=== PATIENT | male | born 1970 | race Caucasian/White ===

== ENCOUNTER 2023-08-11 16:16 | Outpatient (AMB) | payer OTHER, SELFPAY ==
[2023-08-11 16:27] VITALS: BP 126/78; PULSE 76; TEMP 36.9; O2SAT 98; BMI 28.1
--- NOTE | 2023-08-11 16:27 | MHC.OFFWIV ---
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) Intake Note: pt is here for c/o body aches, congestion 2 days Patient Tobacco Use Status: Current everyday Tobacco user Allergies No Known Allergies Allergy (Verified 08/23/23 10:40) Medication List - Last Reconciled 08/23/23 by Rubén Kendrick MD amitriptyline 10 mg PO BEDTIME aspirin 81 mg PO DAILY atorvastatin 20 mg PO DAILY cholecalciferol (vitamin D3) 25 mcg PO DAILY fluticasone propionate 50 mcg/actuation 1 spray intranasal DAILY ibuprofen 800 mg PO Q6H PRN lisinopril 10 mg PO DAILY metoprolol succinate ER 50 mg PO DAILY Do you need a note to return to daycare/school/sports/work: Yes 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 Reporting symptoms of sinus congestion, sore throat and difficulty swallowing. Low-grade fever. No family member is sick. No recent travel. Patient reports symptoms of malaise and fatigue. PFSH Social History Patient Tobacco Use Status: Current everyday Tobacco user Physical Exam Vital Signs: Last Vital Signs Temp 98.5 F 08/11/23 16:27 Pulse 76 08/11/23 16:27 BP 126/78 08/11/23 16:27 Pulse Ox 98 08/11/23 16:27 BMI result Body Mass Index 28.1 Const General: cooperative and healthy appearing Nutritional Appearance: well nourished Orientation/consciousness: patient oriented x3 Limitations: no limitations HEENT Head: Yes normal to inspection Eyes General: appearance normal, both eyes and all related structures Neck Neck: Yes normal visual inspection Chest Chest palpation & inspection: normal palpation of entire chest wall Resp Effort & Inspection: normal respiratory effort Neuro General: patient oriented x3 Assessment & Plan Assessment & Plan (1) Upper respiratory tract infection: Code(s): J06.9 - Acute upper respiratory infection, unspecified Plan: No antibiotics needed. Will call with results of the viral swab. Orders: Orders SARS-CoV2/FLU/RSV 08/12/23 R43.9 - Unspecified disturbances of smell and taste Coding Level of Care Code Est Pt Level 3 (11177) Diagnoses Upper respiratory tract infection J06.9
== END 2023-08-11 16:45 | disposition home or self-care (01) ==
LOC: HO.HMGWI 16:16
DX: J06.9 Acute upper respiratory infection, unspecified (principal)
CPT/HCPCS: 99213

== ENCOUNTER 2023-08-11 16:39 | Outpatient (REF) | payer OTHER, SELFPAY ==
[2023-08-12 14:02] LABS: Influenza A PCR NEGATIVE (Negative); Influenza B PCR NEGATIVE (Negative); Resp Syncy Virus RNA Qual PCR NEGATIVE (Negative); SARS COV2 PCR INHOUSE POSITIVE (Negative)
== END 2023-08-11 16:40 | disposition home or self-care (01) ==
LOC: HO.LAB 16:39
PROVIDERS: Visit Provider Internal Medicine
DX: R43.9 Unspecified disturbances of smell and taste (principal); Z11.52 Encounter for screening for COVID-19
CPT/HCPCS: 0241U

== ENCOUNTER 2023-11-30 15:18 | Outpatient (AMB) | payer OTHER, SELFPAY ==
[2023-11-30 15:20] VITALS: BP 138/82; PULSE 81; TEMP 37.1; O2SAT 98; BMI 29.4
--- NOTE | 2023-11-30 15:20 | MHC.OFFWIV ---
Intake Vital Signs 11/30/23 15:20 Height 5 ft 9 in Weight 199 lb BMI 29.4 BP 138/82 Blood Pressure Location Rt brachial Position Sitting Pulse 81 Pulse Source Pulse Oximeter Temp 98.8 F Temp Source Oral Pulse Oximetry (%) 98 Oxygen Delivery Method Room Air Intake Visit Reasons: EP chills / no fever / cold sweat / weakness Intake Note: pt is here for c/o chills, cold sweats, weakness, he denies having a fever Patient Tobacco Use Status: Current everyday Tobacco user Allergies No Known Allergies Allergy (Verified 11/30/23 16:17) Medication List - Last Reconciled 11/30/23 by Rubén Kendrick MD amitriptyline 10 mg PO BEDTIME aspirin 81 mg PO DAILY atorvastatin 20 mg PO DAILY cholecalciferol (vitamin D3) 25 mcg PO DAILY fluticasone propionate 50 mcg/actuation 1 spray intranasal DAILY ibuprofen 800 mg PO Q6H PRN lisinopril 10 mg PO DAILY metoprolol succinate ER 50 mg PO DAILY Do you need a note to return to daycare/school/sports/work: No HPI EP chills / no fever / cold sweat / weakness HPI Details 53 yr old male presents to the office for a sick visit. In the past week, patient has had two episodes of chills. He felt the rigors which was followed by weakness and back pain. No symptoms of cough, running nose. No family member is sick. 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 PFSH Social History Patient Tobacco Use Status: Current everyday Tobacco user Physical Exam Vital Signs: Last Vital Signs Temp 98.8 F 11/30/23 15:20 Pulse 81 11/30/23 15:20 BP 138/82 11/30/23 15:20 Pulse Ox 98 11/30/23 15:20 Oxygen Delivery Method Room Air 11/30/23 15:20 BMI result Body Mass Index 29.4 Const General: cooperative and healthy appearing Nutritional Appearance: well nourished Orientation/consciousness: patient oriented x3 Limitations: no limitations HEENT Head: Yes normal to inspection Eyes General: appearance normal, both eyes and all related structures Neck Neck: Yes normal visual inspection Chest Chest palpation & inspection: normal palpation of entire chest wall Resp Effort & Inspection: normal respiratory effort Neuro General: patient oriented x3 Assessment & Plan Assessment & Plan (1) Myalgia: Code(s): M79.10 - Myalgia, unspecified site Plan: Blood work including lyme titres have been ordered. Will call with the results. Orders: Orders Complete Blood Count no Diff Today M79.10 - Myalgia, unspecified site Basic Metabolic Panel Today M79.10 - Myalgia, unspecified site Erythrocyte Sedimentation Rate Today M79.10 - Myalgia, unspecified site Liver Panel Today M79.10 - Myalgia, unspecified site Lyme IgG/IgM w/reflex to WB Today M79.10 - Myalgia, unspecified site Coding Level of Care Code Est Pt Level 3 (85570) Diagnoses Myalgia M79.10
== END 2023-11-30 16:33 | disposition home or self-care (01) ==
PROVIDERS: Visit Provider Internal Medicine
DX: M79.10 Myalgia, unspecified site (principal)
CPT/HCPCS: 99213

== ENCOUNTER 2023-12-01 09:50 | Outpatient (REF) | payer OTHER, SELFPAY ==
[2023-12-01 13:31] LABS: Hematocrit 43.6 % (42.0-52.0); Hemoglobin 13.7 g/dl (14.0-18.0); Mean Corpuscular HGB Conc 31.4 g/dl (31.0-36.0); Mean Corpuscular Hemoglobin 28.1 pg (27.0-33.0); Mean Corpuscular Volume 89.5 fL (80.0-98.0); Mean Platelet Volume 10.4 fL (9.4-12.4); Platelet Count 217 X10*3/uL (160-400); Red Blood Count 4.87 X10*6/uL (4.60-5.80); White Blood Count 6.6 X10*3/uL (4.8-10.8)
[2023-12-01 13:44] LABS: Alanine Aminotransferase 22 U/L (0-40); Albumin Level 4.3 g/dL (3.5-5.0); Alkaline Phosphatase 54 U/L (39-117); Anion Gap 15 (12-20); Aspartate Amino Transferase 15 U/L (5-37); Bilirubin Direct 0.2 mg/dL (0.0-0.5); Bilirubin Total 0.5 mg/dL (0.0-1.0); Blood Urea Nitrogen 18 mg/dL (9-16); Calcium 10.4 mg/dL (8.4-10.2); Carbon Dioxide 27 mmol/L (22-29); Chloride 104 mmol/L (96-108); Estimated Glomerular Filt Rate > 60; Glucose Random 105 mg/dL (60-115); Potassium 4.4 mmol/L (3.3-5.1); Sodium 142 mmol/L (135-145)
[2023-12-01 14:21] LABS: Erythrocyte Sedimentation Rate 21 MM/HR (0-15)
[2023-12-02 17:44] LABS: Lyme Abs Screen <0.90 index
== END 2023-12-01 09:51 | disposition home or self-care (01) ==
LOC: HO.HMGCLDS 09:50
PROVIDERS: Visit Provider Internal Medicine
DX: M79.10 Myalgia, unspecified site (principal)
CPT/HCPCS: 36415; 80048; 80076; 85027; 85652; 86617; 86618

== ENCOUNTER 2024-06-28 10:27 | Outpatient (AMB) | payer OTHER, SELFPAY ==
--- NOTE | 2024-06-28 10:29 | MHC.OFFWIV ---
Intake Vital Signs 06/28/24 10:30 Height 5 ft 9 in Weight 200 lb BMI 29.5 BP 122/78 Blood Pressure Location Lt brachial Position Sitting Pulse 86 Pulse Source Pulse Oximeter Temp 98.4 F Temp Source Oral Pulse Oximetry (%) 98 Oxygen Delivery Method Room Air Intake Visit Reasons: EP- chest cyst Intake Note: Patient here for painful cyst on left side of chest that has grown bigger over the past weekl. Patient Tobacco Use Status: Current everyday Tobacco user Allergies No Known Allergies Allergy (Verified 06/28/24 10:30) Do you need a note to return to daycare/school/sports/work: No HPI HPI Comments History of Present Illness Details History of Present Illness The patient is a 54-year-old male presenting with a recurrent cyst on the chest. He reports that the cyst has been present for over a year. Approximately a year ago, he sought treatment at [facility], where a procedure involving burning of the skin and squeezing was performed. The patient described this method as painful and ineffective, as it did not involve a simple incision and drainage but rather burning the area, which led to a distressing experience. The cyst began to regrow over the summer, becoming larger and painful. It is currently very red but not associated with fever. The patient does not have a microsoft exchange architect and mentioned that his chest is extensively scarred due to previous open heart surgery. He has tattooed the area to cover the scarring, which he finds aesthetically distressing. [facility] Social History Patient Tobacco Use Status: Current everyday Tobacco user Review of Systems Const All systems reviewed & are unremarkable except as noted in HPI and below Physical Exam Vital Signs: Last Vital Signs Temp 98.4 F 06/28/24 10:30 Pulse 86 06/28/24 10:30 BP 122/78 06/28/24 10:30 Pulse Ox 98 06/28/24 10:30 Oxygen Delivery Method Room Air 06/28/24 10:30 BMI result Body Mass Index 29.5 Const General: cooperative, healthy appearing, comfortable, no acute distress and well developed Orientation/consciousness: patient oriented x3 Limitations: no limitations HEENT Head: Yes normal to inspection Eyes General: appearance normal, both eyes and all related structures Neck Neck: Yes normal visual inspection and Yes full ROM Resp Effort & Inspection: normal respiratory effort and able to speak in complete sentences Skin Other: superficial 1.25cm round fluctuant tender area on left side chest; no ecchymosis, no lesions, no lacerations or abrasions noted Neuro General: patient oriented x3 Extrem General: Yes normal to inspection Office Procedures I&D Drain Details: injected 3mL's 2% lidocaine, using scalpel, made a small 0.5cm incision into the center of the abscess with immediate purulent fluid coming out, able to express 4-5mL's - sent culture, some ss fluid and blood. packed with iodoform and taped in place. 57787-Uyvvlsej of Skin Abscess, simple All charges added?: Procedure code (CPT) selection complete Assessment & Plan Assessment & Plan (1) Abscess: Code(s): L02.91 - Cutaneous abscess, unspecified Plan: I&D successful with some residual induration so I sent keflex to his pharmacy to cover the remainder. Patient will return in 2-3 days for wound packing removal and wound assessment. Sent culture. Orders: Orders Routine Culture w Gram Stain Today L02.91 - Cutaneous abscess, unspecified Medications: New cephalexin 500 mg PO Q6H 20 caps 0RF Coding Level of Care Code New Pt Level 4 (28998) Diagnoses Abscess L02.91 CPT Codes I&D Drain - Drain 1: 08885-Belzpvjm of Skin Abscess, simple ([id number])
[2024-06-28 10:30] VITALS: BP 122/78; PULSE 86; TEMP 36.9; O2SAT 98; BMI 29.5
== END 2024-06-28 12:41 | disposition home or self-care (01) ==
PROVIDERS: Visit Provider Physician Assistant
DX: L02.91 Cutaneous abscess, unspecified (principal)

== ENCOUNTER 2024-06-28 10:27 | Outpatient (REF) | payer OTHER, SELFPAY | END 2024-06-28 10:28 | disposition home or self-care (01) | LOC: HO.LAB 10:27 | PROVIDERS: Visit Provider Physician Assistant | DX: L02.91 Cutaneous abscess, unspecified (principal) | CPT/HCPCS: 10060; 87070; 87077; 87186; 87205; 99212 ==

== ENCOUNTER 2024-06-30 14:03 | Outpatient (AMB) | payer OTHER, SELFPAY ==
--- NOTE | 2024-06-30 14:21 | AM.OFFWIN_ITS ---
Intake Vital Signs 06/30/24 15:02 Weight 200 lb BP 128/80 Blood Pressure Location Lt brachial Position Sitting Pulse 78 Pulse Source Pulse Oximeter Pulse Oximetry (%) 98 Oxygen Delivery Method Room Air Intake Visit Reasons: EP Cyst on chest follow up Intake Note: Patient here to f/u on cyst on chest Patient Tobacco Use Status: Current everyday Tobacco user Allergies No Known Allergies Allergy (Verified 06/30/24 15:03) Do you need a note to return to daycare/school/sports/work: No HPI HPI Comments History of Present Illness Details History of Present Illness The patient is a 54-year-old male presenting for wound check on his abscess. The patient reports an ongoing issue with an abscess that had previously been drained and packed with material at this clinic a few days ago. The packing has remained in place but continues to leak significantly. The abscess has been described as swollen and painful. The patient has sought care for this condition, indicating persistent discomfort despite receiving oral antibiotics. The patient has started a course of Keflex, taking a dose of 500 mg, twice daily since the previous evening. There is a notable wound odor described as super stinky. Preliminary culture results indicate the presence of four different types of bacteria in the abscess, with some identified as normal skin isabel and others not. The patient has been prescribed Motrin for pain, although it reportedly provides minimal relief. Physical Exam General: Cooperative, healthy appearing, comfortable, no acute distress and well developed Orientation: Patient oriented x3 Limitations: No limitations Head: Normal to inspection Ears: Hearing grossly normal bilaterally Nose: Normal External nose present Face and sinus: normal facial exam Eyes: Appearance normal, both eyes and all related structures Neck: Normal visual inspection and Yes full ROM Skin: Abscess present, draining with malodorous purulent fluid. No rashes or lesions noted Neuro: Patient oriented x3 Extremities: Normal to inspection PFSH Social History Patient Tobacco Use Status: Current everyday Tobacco user Review of Systems Const All systems reviewed & are unremarkable except as noted in HPI and below Physical Exam Vital Signs: Last Vital Signs Pulse 78 06/30/24 15:02 BP 128/80 06/30/24 15:02 Pulse Ox 98 06/30/24 15:02 Oxygen Delivery Method Room Air 06/30/24 15:02 Assessment & Plan Assessment & Plan (1) Abscess: Code(s): L02.91 - Cutaneous abscess, unspecified Plan: Plan - Continue current antibiotic regimen with Keflex to target a broad range of bacteria. Called pt when he left to ensure he is taking it FOUR times a day, every 6 hours as he stated he was only taking it twice daily. - Initiate treatment with Doxycycline to address the potential presence of MRSA. - Advise the patient to take Doxycycline twice daily for five to seven days, monitoring the abscess. If improvement is noted at five days, continuation for an additional two days is advised if symptoms persist. - If symptoms do not improve, recommend follow-up with the primary care physician for potential referral to general surgery or dermatology for complete excision of the abscess sac. - Overhead Cleaner Maintainer the patient on pain management, suggesting limited use of Motrin to prevent excessive intake, as it is not significantly alleviating symptoms. Patient was informed and verbally consented to the use of an ambient scribe for clinic note documentation during this visit. Medications: New doxycycline hyclate 100 mg PO BID 14 tabs 0RF Coding Level of Care Code New Pt Level 3 (91307) Diagnoses Abscess L02.91
[2024-06-30 15:02] VITALS: BP 128/80; PULSE 78; O2SAT 98
== END 2024-06-30 15:23 | disposition home or self-care (01) ==
PROVIDERS: Visit Provider Physician Assistant
DX: L02.91 Cutaneous abscess, unspecified (principal)

== ENCOUNTER → 2024-06-30 14:03 | Outpatient (BNVA) | payer OTHER, SELFPAY | DX: L02.91 Cutaneous abscess, unspecified (principal) | CPT/HCPCS: 99212 ==

== ENCOUNTER 2025-03-02 15:57 | Outpatient (AMB) | payer OTHER, SELFPAY ==
--- OUTSIDE RECORDS SUMMARY | 2025-03-02 15:59 | XMS_ITS | Encounter Summary ---
Author Organization [facility] Address [address] [place] [address] Care Team Providers Care Natural Gas Technician Name Role Phone Mello Grace MD Primary Care Provider [phone] Reason for Visit * Reason Onset Date Comments Cyst 06/28/2024 Encounter Details Date Type Department Care Team (Late st Contact Info) Description 06/28/2024 Nurse Triage Adult Medicine [address] [id number] Mello Grace MD [address] [place] [id number] Cyst Social History Tobacco Use Types Packs/Day Years Used Date Smoking Tobacco: Every Day Cigarettes 2 33.2 Started: 1985; Last attempted to quit: 07/29/2018 Smokeless Tobacco: Never Alcohol Use Standard Drinks/Week Comments Yes 8 (1 standard drink = 0.6 oz pur e alcohol) Sex and Gender Information Value Date Recorded Sex Assigned at Not on file Legal Sex Male 12:44 AM EST Gender Identity Not on file Sexual Orientation Not on file documented as of this encounter Progress Notes * Katherine Dixon RN - 06/28/2024 10:17 AM EST Reason for Disposition ??? [1] Spreading redness around the boil AND [2] no fever Answer Assessment - Initial Assessment Questions 1. APPEARANCE of BOIL: What does the boil look like? Red, painful boil on chest 2. LOCATION: Where is the boil located? Near nipple on left side of the chest 3. NUMBER: How many boils are there? one 4. SIZE: How big is the boil? (e.g., inches, cm; compare to size of a coin or other object) Size of 50 cent piece 5. ONSET: When did the boil start? Has been present for years, rd and sore x 1 week 6. PAIN: Is there any pain? If Yes, ask: How bad is the pain? (Scale 1-10; or mild, moderate, severe) - NONE (0): No pain. - MILD (1-3): Doesn't interfere with normal activities, not tender to touch. - MODERATE (4-7): Interferes with normal activities or awakens from sleep. - SEVERE (8-10): Excruciating pain, unable to do any normal activities. Moderate 7. FEVER: Do you have a fever? If Yes, ask: What is it, how was it measured, and when did it start? no 8. SOURCE: Have you been around anyone with boils or other Staph infections? Have you ever had boils before? No 9. OTHER SYMPTOMS: Do you have any other symptoms? (e.g., shaking chills, weakness, rash elsewhere on body) Pt has no chest pain or SOB, no N/V/D or fever, boil is very red and very sore, area is firm no drainage , has pain when he moves his arm due to the inflammation had same boil drained a few years ago . 10. : Is there any chance you are ? When was your last menstrual period? N/A Protocols used: Boil (Skin Abscess)-A- * Stephanie Hernadez - 06/28/2024 10:05 AM EST Patient call requires triage: Symptoms patient is presenting: A cyst or a boil on left side of the chest which is extremely painful, painful to the touch, swelling, red How long has patient had these symptoms?: 3 months For ALL patients calling to schedule any appointment (routine, sick visit, follow up, consult, etc.) in the outpatient setting please ask the following questions: Do you have fever of higher than 101, sore throat with difficulty swallowing or severe shortness ofbreath? no If YES to any of these above symptoms, send a message to triage and do not book. Red dot. If no, an audio or video visit should be booked. Have you had close contact with someone with Coronavirus in the last 14 days? no Have you traveled abroad? no Have you traveled recently to another state outside of [place], [place], [place], [place], [place], [place]? no o If yes, did you quarantine for 14 days or have a negative covid test? no If yes to any of the above, patient is not to be scheduled in office until after 14 day quarantine or negative covid test. If pain or injury related was it due to an accident at work or from a motor vehicle accident? If yes, date of accident/Injury: No If yes, gather 3rd green party insurance information Third Green Party Information: not applicable PCP: Mello Grace MD Payor: / No coverage found. documented in this encounter Plan of Treatment Upcoming Encounters Date Type Department Care Team (Late st Contact Info) Description 05/01/2025 1:00 PM EDT Appointment [facility] Endoscopy [address] [place] [id number] Russell Jaimes MD [address] [place] [address] documented as of this encounter Visit Diagnoses Not on filedocumented in this encounter Care Teams Natural Gas Technician Relationship Specialty Start Date End Date Mello Grace MD [address] [place] [address] PCP - General Internal Medicine 05/12/22 documented as of this encounter
--- OUTSIDE RECORDS SUMMARY | 2025-03-02 15:59 | XMS_ITS | Encounter Summary ---
Author Organization [facility] Address [address] [place] [address] Phone Care Team Providers Care Chip Mucker Name Role Phone Unknown, Unknown Primary Care Provider Edith Dewitt MD Primary Care Prov ider Fermín Redd MD Unavailable [phone] Marco Delvalle MD Unavailable [phone] Encounter Details Date Type Department Care Team (Late st Contact Info) Description 07/29/2018 Procedure Pass [facility] Periop [address] [place] [address] Social History Tobacco Use Types Packs/Day Years Used Date Smoking Tobacco: Every Day Cigarettes Smokeless Tobacco: Never Alcohol Use Standard Drinks/Week Comments Yes 0 (1 standard drink = 0.6 oz pur e alcohol) Sex and Gender Information Value Date Recorded Sex Assigned at Not on file Legal Sex Male 7:37 PM EST Gender Identity Not on file Sexual Orientation Not on file documented as of this encounter Plan of Treatment Not on file documented as of this encounter Visit Diagnoses Not on filedocumented in this encounter Care Teams Chip Mucker Relationship Specialty Start Date End Date Unknown, Unknown, PCP - General 07/22/18 08/25/18 Edith Morgan MD [address] [place] [address] PCP - General Internal Medicine 08/26/18 Fermín Redd MD [address] [place] [id number] [email or web address] 07/22/18 Marco Delvalle MD [address] [place] [id number] [email or web address] Snuff Container Inspector Cardiology 08/09/18 documented as of this encounter Additional Source Comments The information contained in this document represents components of the legal health record. It is not the complete legal health record.[facility]
--- OUTSIDE RECORDS SUMMARY | 2025-03-02 15:59 | XMS_ITS | Encounter Summary ---
Author Organization [facility] Address [address] [place] [address] Care Team Providers Care Extractor Tender Raw Stock Name Role Phone Yvonne Fonseca MD Primary Care Provider [phone] Reason for Visit * Reason Comments Med Change Request Encounter Details Date Type Department Care Team (Late st Contact Info) Description 01/27/2025 Refill [facility] [address] [place] [address] Carmella Hickman PA [address] [place] [address] [address] [place] [address] Essential hypertension ; Hyperlipidemia, unspecified hyperlipidemia type ; Bariatric surgery status; Class 1 obesity with serious comorbidity and body mass index (BMI) of 30.0 to 30.9 in adult, unspecified obesity type; Coronary artery disease involving coronary bypass graft of [place] heart, unspecified whether angina present ; History of bariatric surgery Social History Tobacco Use Types Packs/Day Years Used Date Smoking Tobacco: Never Assessed Sex and Gender Information Value Date Recorded Sex Assigned at Not on file Legal Sex Male 5:44 AM EST Gender Identity Not on file Sexual Orientation Not on file documented as of this encounter Plan of Treatment Upcoming Encounters Date Type Department Care Team (Late st Contact Info) Description 03/23/2025 2:00 PM EDT Office Visit [facility] [address] [place] [address] Lillian Tapia PA [address] [place] [phone] 06/26/2025 10:00 AM EST Telemedicine [facility] [address] [place] [address] Carmella Hickman PA [address] [facility] [address] [place] [address] documented as of this encounter Visit Diagnoses Diagnosis Essential hypertension Unspecified essential hypertension Hyperlipidemia, unspecified hyperlipidemia type Bariatric surgery status Class 1 obesity with serious comorbidity and body mass index (BMI) of 30.0 to 30.9 in adult, unspecified obesity type Coronary artery disease involving coronary bypass graft of [place] heart, unspecified whether angina present History of bariatric surgery Bariatric surgery status documented in this encounter Care Teams Extractor Tender Raw Stock Relationship Specialty Start Date End Date Yvonne Fonseca MD PCP - General Pick Up Operator 12/20/21 documented as of this encounter
--- OUTSIDE RECORDS SUMMARY | 2025-03-02 15:59 | XMS_ITS ---
Author Name [facility] Organization Unknown Care Team Organization Name Specialty Phone Email Start Date End Da te [facility] Mello Grace Primary Care 01/02/202302/24 [facility] Marian Primary Care 06/03/2022 03/14/2024
[2025-03-02 16:11] VITALS: BP 114/70; PULSE 75; TEMP 36.9; O2SAT 97; BMI 28.8
--- NOTE | 2025-03-02 16:11 | MHC.OFFWIV ---
Intake Vital Signs 03/02/25 16:11 Height 5 ft 9 in Weight 195 lb BMI 28.8 BP 114/70 Blood Pressure Location Rt brachial Position Sitting Pulse 75 Pulse Source Pulse Oximeter Temp 98.4 F Temp Source Oral Pulse Oximetry (%) 97 Oxygen Delivery Method Room Air Intake Visit Reasons: Unable to hear L Ear Intake Note: Presents with Left ear blockage for a couple weeks Patient Tobacco Use Status: Current everyday Tobacco user Allergies No Known Allergies Allergy (Verified 03/02/25 16:13) Do you need a note to return to daycare/school/sports/work: No HPI HPI Comments History of Present Illness Details History - The patient is a 54-year-old male presenting with hearing loss and ear pain. - The patient reports being unable to hear from the left ear, with the issue being described as feeling 'blocked up'. - He states that the left is worse than the right. - There are no associated symptoms such as cold symptoms, fever, or chills. - He denies ESQUIVEL,congestion, runny nose, sore throat, CP, or SOB. Physical Exam General: Cooperative, healthy appearing, comfortable, no acute distress and well developed Head: Normal to inspection Ears: External ears normal bilaterally. No tragus or mastoid tenderness noted. Cerumen noted in the canal. TM's not visualized. Respiratory: Normal respiratory effort and able to speak in complete sentences. Clear to auscultation bilaterally. No w/r/r noted. Cardiac: RRR, no m/r/g noted. Normal S1 and S2 noted. Patient was informed and verbally consented to the use of an ambient scribe for clinic note documentation during this visit. [facility] Social History Patient Tobacco Use Status: Current everyday Tobacco user Review of Systems Const All systems reviewed & are unremarkable except as noted in HPI and below Physical Exam Vital Signs: Last Vital Signs Temp 98.4 F 03/02/25 16:11 Pulse 75 03/02/25 16:11 BP 114/70 03/02/25 16:11 Pulse Ox 97 03/02/25 16:11 Oxygen Delivery Method Room Air 03/02/25 16:11 BMI result Body Mass Index 28.8 Office Procedures Cerumen Removal From which ear canal was the cerumen removed: bilateral Removal: irrigation Notes: patient tolerated procedure well, no complications and ear canal clear 85070-Frj Irrigation/Lavage Assessment & Plan Assessment & Plan (1) Impacted cerumen of both ears: Code(s): H61.23 - Impacted cerumen, bilateral Plan Most likely cerumen impaction Plan - Plan to perform ear irrigation to remove cerumen. - Prescribe ear wax softening drops to aid in cerumen removal. - follow up with PCP Orders: Orders AMB Cerumen Removal Today H61.23 - Impacted cerumen, bilateral Medications: New carbamide peroxide 6.5% (Debrox) 5 drps otic (ears) DAILY 15 mL 0RF 4 days Coding Level of Care Code Est Pt Level 3 (84025) Diagnoses Impacted cerumen of both ears H61.23 CPT Codes Office Procedure - CPT: 43457-Psc Irrigation/Lavage ([id number])
== END 2025-03-02 16:57 | disposition home or self-care (01) ==
PROVIDERS: Visit Provider Physician Assistant Medical
DX: H61.23 Impacted cerumen, bilateral (principal)

== ENCOUNTER → 2025-03-02 15:57 | Outpatient (BNVA) | payer OTHER, SELFPAY | PROVIDERS: Visit Provider Physician Assistant Medical | DX: H61.23 Impacted cerumen, bilateral (principal) | CPT/HCPCS: 69209; 99212 ==

== ENCOUNTER 2025-07-13 10:46 | Outpatient (AMB) | payer OTHER, SELFPAY ==
[2025-07-13 10:59] VITALS: BP 138/70; PULSE 78; TEMP 36.8; O2SAT 99; BMI 29.2
--- NOTE | 2025-07-13 10:59 | AM.OFFWIN_ITS ---
Intake Vital Signs 07/13/25 10:59 Height 5 ft 9 in Weight 198 lb BMI 29.2 BP 138/70 Blood Pressure Location Lt brachial Position Sitting Pulse 78 Pulse Source Pulse Oximeter Temp 98.2 F Temp Source Oral Pulse Oximetry (%) 99 Oxygen Delivery Method Room Air Intake Visit Reasons: EP-rt ear & jaw pain Intake Note: pt presents with right jaw and ear pain- gums swollen right bottom gum, bilateral ear wax blockage Patient Tobacco Use Status: Current everyday Tobacco user Allergies No Known Allergies Allergy (Verified 07/13/25 11:01) Do you need a note to return to daycare/school/sports/work: No HPI HPI Comments History of Present Illness Details History - The patient is a 55-year-old male pres enting with dental pain, gum swelling and cerumen impaction. - He reports a feeling of swelling in th e back of his mouth, possibly from a wisdom tooth, which is tender to pressure. - Associated symptoms include tenderness under the jaw and pain with clicking upon opening and closing his mouth. - He denies any bad taste or smell in hi s mouth and reports no sinus pain or pressure. - He has a history of a previous tooth i nfection that was so severe he could not open his mouth or chew. - The patient also complains of signific ant hearing loss in his left ear, stati ng he can't hear nothing, and has bilateral cerumen impaction. - He has a history of cerumen buildup an d had a prior visit for ear wax removal, where peroxide was used. - The patient reports that he has quit s moking but that he does vape. - He denies fever, chills, CP, SOB, abd pain, n/v/d, sick contacts, or travel. Physical Exam General: Cooperative, healthy appearing, comfortable, no acute distress and well developed Head: Normal to inspection Ears: External ears normal bilaterally. No tragus or mastoid tenderness noted. Cerumen noted in the canal. TM's not visualized. Face and sinus: Normal facial exam. No TTP of the sinuses. Mouth: Uvula is midline. Pharynx is non-erythematous, no exudates noted. Dental caries are noted. No gingival swelling noted. Neck: Normal visual inspection. Full ROM. No lymphadenopathy noted. Respiratory: Normal respiratory effort and able to speak in complete sentences. Clear to auscultation bilaterally. No w/r/r noted. Cardiac: RRR, no m/r/g noted. Normal S1 and S2 noted. No w/r/r noted. Skin: No rashes or lesions noted Patient was informed and verbally consented to the use of an ambient scribe for clinic note documentation during this visit. [facility] Social History Patient Tobacco Use Status: Current everyday Tobacco user Review of Systems Const All systems reviewed & are unremarkable except as noted in HPI and below Physical Exam Vital Signs: Last Vital Signs Temp 98.2 F 07/13/25 10:59 Pulse 78 07/13/25 10:59 BP 138/70 07/13/25 10:59 Pulse Ox 99 07/13/25 10:59 Oxygen Delivery Method Room Air 07/13/25 10:59 BMI result Body Mass Index 29.2 Office Procedures Cerumen Removal From which ear canal was the cerumen removed: bilateral Removal: irrigation Notes: patient tolerated procedure well, no complications and ear canal clear [id number] Irrigation/Lavage Assessment & Plan Assessment & Plan (1) Pain, dental: Code(s): K08.89 - Other specified disorders of teeth and supporting structures (2) Cerumen impaction: Code(s): H61.20 - Impacted cerumen, unspecified ear Qualifiers: Laterality: bilateral Qualified Code(s): H61.23 - Impacted cerumen, bilateral Plan Most likely dental caries and possible abscess also has a cerumen impaction as well Plan - tylenol or motrin as needed for pain - diet as tolerated - A prescription for Augmentin, one tablet twice daily for 10 days, will be sent to the pharmacy for the presumed dental infection. - Will proceed with in-office ear cleaning to address the bilateral cerumen impaction. - If the ear wax cannot be fully removed, a prescription for Debrox ear drops will be provided to act as a softener. - The patient was advised to follow up with his primary care provider to obtain a referral to an ENT specialist for further management, such as suction removal, if needed. Orders: Orders AMB Cerumen Removal Today H61.23 - Impacted cerumen, bilateral Medications: New carbamide peroxide 6.5% (Debrox) 5 drps otic (ears) DAILY 15 mL 0RF 4 days amoxicillin-pot clavulanate 875-125 mg 1 tab PO Q12H 20 tabs 0RF 10 days Coding Level of Care Code Est Pt Level 4 (40586) Diagnoses Pain, dental K08.89 Bilateral impacted cerumen H61.23 Laterality: bilateral CPT Codes Office Procedure - CPT: 23049-Hke Irrigation/Lavage ([id number])
--- OUTSIDE RECORDS SUMMARY | 2025-07-13 13:46 | XMS_ITS | Encounter Summary ---
Author Organization [facility] Address [address] [place] [address] Care Team Providers Care Molder Floor Name Role Phone Yvonne Fonseca MD Primary Care Provider [phone] Reason for Visit * Reason Onset Date Comments Wegovy 2.4mg 06/28/2025 Encounter Details Date Type Department Care Team (Late st Contact Info) Description 06/28/2025 Telephone [facility] [address] [address] Carmella Hickman PA [address] [place] [address] Wegovy 2.4mg Social History Tobacco Use Types Packs/Day Years Used Date Smoking Tobacco: Never Assessed Sex and Gender Information Value Date Recorded Sex Assigned at Not on file Legal Sex Male 5:44 AM EST Gender Identity Not on file Sexual Orientation Not on file documented as of this encounter Miscellaneous Notes * Telephone Encounter - Bibiana Galicia MA - 06/29/2025 2:55 PM EST I called Richi at [phone] to follow up on the pending PA for Welauriey. I spoke with Adrián and he faxed over a request for additional clinical information. I completed the questionnaire and faxed it back with the office notes from 11/24/24 and 06/26/25. . . * Telephone Encounter - Bibiana Galicia MA - 06/28/2025 8:13 AM EST I received a prior authorization request from [facility]. I tried to submit the information and got a response:Information regarding your request PA has already submitted and is in process for this patient and drug.;CaseId:[id number];Status:In Process;. [employer]. documented in this encounter Plan of Treatment Upcoming Encounters Date Type Department Care Team (Late st Contact Info) Description 12/11/2025 2:00 PM EDT Office Visit [facility] [address] [address] Carmella Hickman PA [address] [place] [address] documented as of this encounter Visit Diagnoses Not on filedocumented in this encounter Care Teams Molder Floor Relationship Specialty Start Date End Date Yvonne Fonseca MD PCP - General Pie Bottomer 12/20/21 documented as of this encounter
--- OUTSIDE RECORDS SUMMARY | 2025-07-13 13:46 | XMS_ITS | Clinical Summary ---
Author Organization [facility] Address [address] [place] [address] Phone Care Team Providers Care Desktop Analyst Name Role Phone Edith Morgan MD Primary Care Prov ider Fermín Redd MD Unavailable [phone] Marco Delvalle MD Unavailable [phone] Allergies No known active allergies Medications aspirin (ASPIRIN LOW DOSE) 81 MG EC tablet Take 1 tablet (81 mg total) by mouth daily. 90 tablet 3 6 Active metoprolol succinate (TOPROL-XL) 50 MG 24 hr tablet Take 1 tablet (50 mg total) by mouth daily. 30 tablet 1 6 Active atorvastatin (LIPITOR) 40 MG tablet Take 1 tablet (40 mg total) by mouth nightly. 90 tablet 3 6 Active lisinopril (PRINIVIL,ZESTRI L) 10 MG tablet Take 1 tablet (10 mg total) by mouth daily. 90 tablet 3 6 Active warfarin (COUMADIN) 5 MG tabletIndication s:Paroxysmal atrial fibrillation Take 1 tablet (5 mg total) by mouth daily. 9 Active Additional Information Patient not taking.Reported on 03/25/2019 Active Problems Problem Noted Date Diagnosed Date Benign essential hypertension 08/12/2018 Assessment & Plan (08/12/2018 2:03 PM EST): Blood pressure well controlled on the metoprolol. I would continue this. Other hyperlipidemia 08/12/2018 Assessment & Plan (08/12/2018 2:03 PM EST): Continue atorvastatin. I gave him a lab slip for repeat fasting lipids and LFTs in a few months. Tobacco abuse 08/12/2018 Assessment & Plan (08/12/2018 2:03 PM EST): I praised him for quitting smoking. Paroxysmal atrial fibrillation 08/12/2018 Assessment & Plan (08/12/2018 2:03 PM EST): He had postoperative atrial fibrillation but remains in a sinus rhythm today. I would continue him on the amiodarone and the Eliquis for now. If at the 3-month julissa he remains in sinus rhythm I will consider stopping these. CAD (coronary artery disease) 07/22/2018 Assessment & Plan (08/12/2018 2:02 PM EST): He had severe multivessel coronary artery disease and is status post three- vessel bypass July 2018 with a CORCORAN to LAD, vein graft to OM1 and vein graft to distal RCA. He should remain on aspirin lifelong we will continue to optimize his cardiac risk factors. Like to recheck an echocardiogram to make sure that his LV function remains preserved postoperatively. Chest pain 07/22/2018 Immunizations Immunization Administration Dates Next Due Pneumococcal polysaccharide PPSV23 02/05/2009(Englishd: Patient Decision) Family History Medical History Relation Comments Heart attack Father CABG Mother Heart attack Mother Relation Status Comments Father Mother Social History Tobacco Use Types Packs/Day Years Used Date Smoking Tobacco: Former Cigarettes Smokeless Tobacco: Never Alcohol Use Standard Drinks/Week Comments Yes 0 (1 standard drink = 0.6 oz pur e alcohol) Education Answer Date Recorded Are you interested in more education? Not on primitivo e 11/20/2022 Are you concerned about learning? Not on file 11/20/2022 No 11/20/2022 No 11/20/2022 Digital Access Answer Date Recorded No 12/22/2022 No 12/22/2022 No 12/22/2022 Reliable internet access at home? Not on file 12/22/2022 Device with a working camera? Not on file Sex and Gender Information Value Date Recorded Sex Assigned at Not on file Legal Sex Male 7:37 PM EST Gender Identity Not on file Sexual Orientation Not on file Last Filed Vital Signs Vital Sign Reading Time Taken Comments Blood Pressure 136/82 08/25/2020 1:11 PM EST Pulse 81 08/25/2020 1:11 PM EST Temperature 36.3 C (97.4 F) 08/25/2020 1:11 PM EST Respiratory Rate 16 08/25/2020 1:11 PM EST Oxygen Saturation 99% 08/25/2020 1:11 PM EST Inhaled Oxygen Concentration 40% 07/31/2018 9 :17 PM EST Weight 104.3 kg (230 lb) 08/25/2020 1:11 PM EST Height 175.3 cm (5' 9 ) 08/25/2020 1:11 PM EST Body Mass Index 33.97 08/25/2020 1:11 PM EST Plan of Treatment Health Maintenance Due Date Last Done Comments Adult Td,Tdap Booster 1971 BLOOD PRESSURE 1971 SMOKING Hx and SMOKELESS TOBACCO SCREENING 1984 HEPATITIS C SCREENING 1989 HIV ONE-TIME SCREENING (18-65 YEARS) 1989 COLOGUARD 2016 COLONOSCOPY 2016 COLORECTAL CANCER SCREENING 2016 FIT TEST 2016 FOBT 2016 SIGMOIDOSCOPY 2016 VIRTUAL COLONOSCOPY 2016 CREATININE LEVEL 08/04/2019 08/04/2018, 02/2019, 08/02/2018, Additional history exists POTASSIUM LEVEL 08/04/2019 08/04/2018, 02/2019, 08/03/2018, Additional history exists DEPRESSION SCREENING 03/25/2020 03/25/2019 PNEUMOCOCCAL VACCINES (50+ years) (1 of 1 - PCV) 2021 ZOSTER VACCINES (1 of 2) 2021 INFLUENZA VACCINE (#1) 2025 COVID-19 VACCINE (2 - 2024- season) 2025 11/19/2020 RSV VACCINE (1 - 1-dose 75+ series) 2046 HEPATITIS A VACCINES Aged Out No long er eligible based on patient's age to complete this topic HIB VACCINES Aged Out No longer eligi ble based on patient's age to complete this topic MENINGOCOCCAL VACCINES (ACWY) Aged Out No longer eligible based on patient's age to complete this topic MENINGOCOCCAL VACCINES (B) Aged Out N o longer eligible based on patient's age to complete this topic Medical Devices Implanted Type Area Coating Mixer Tender Device Identifier Shelf Expiration Date Model / Serial / Lot Stent Stent Procedures Procedure Name Priority Date/Time Associated Diagnosis Comments BASIC METABOLIC PANEL (BMP) Routine 08/04/2018 7:56 AM EST from Last 3 Months or Most Recently Relevant to Health Maintenance Results * (ABNORMAL) Basic metabolic panel (08/04/2018 7:56 AM EST) SODIUM 137 136 - 145 mmol/L [facility] POTASSIUM 4.1 3.4 - 5.1 mmol/L [facility] CHLORIDE 98 98 - 107 mmol/L [facility] CO2 25 22 - 31 mmol/L [facility] BUN 16 6 - 23 mg/dL [facility] CREATININE 0.74 0.50 - 1.20 mg/dL [facility] GLUCOSE 106(H) 70 - 100 mg/dL [facility] CALCIUM 9.2 8.8 - 10.7 mg/dL [facility] EGFR 110 >59 mL/min/1.7 3m2 [facility] Comment:If patient is black, multiply result by 1.159. Estimated glomerular filtration rate calculated using the CKD-EPI equation. ANION GAP 14 7 - 17 mmol/L [facility] Blood 08/04/2018 7:56 AM EST 08/04/2018 9:12 AM EST us Nathan Garcia PA-C LAB BLOOD BKR ORDERABLES Fin al Result [facility] [address] [place] [id number] from Last 3 Months or Most Recently Relevant to Health Maintenance [facility] [address] [place] [address] [facility] [employer] ALLANCE [address] [place] [address] [facility] [place] [address] [facility] [employer]UTCHIN[employer] Learning Systems[employer] ALLANCE ACO [address] [place] [address] [facility] Hanzo ArchivesY ALLANCE [address] [place] [address] [employer] ALLANCE [facility] [address] [facility] [place] [address] [facility] [address] [facility] [address] [facility] [address] [facility] [address] [employer] [facility] ALLANCE ACO [facility] [address]mit [address] [place] [address] [facility] [address] [place] [address] Advance Directives For more information, please contact: [phone] (9AM - 5PM [place], Thursday-Thursday) * Full Code (Presumed) (Latest Code Status on File) Date Activated Date Inactivated Comments 07/29/2018 7:46 PM 08/04/2018 3:16 PM * Full Code (Confirmed) Date Activated Date Inactivated Comments 07/22/2018 7:05 PM 07/29/2018 7:46 PM Question Answer Comments Code Discussion Comments: patient and Breana bates MD * Full Code (Presumed) Date Activated Date Inactivated Comments 07/22/2018 7:04 PM 07/22/2018 7:05 PM Care Teams Desktop Analyst Relationship Specialty Start Date End Date Edith Morgan MD [address] [place] [address] PCP - General Internal Medicine 08/26/18 Fermín Redd MD [address] [place] [address] [email or web address] 07/22/18 Marco Delvalle MD [address] [place] [address], [address] [place] [address] [email or web address] Digital Service Engineer Cardiology 08/09/18 Additional Source Comments The information contained in this document represents components of the legal health record. It is not the complete legal health record.[facility]
--- OUTSIDE RECORDS SUMMARY | 2025-07-13 13:46 | XMS_ITS | Encounter Summary ---
Author Organization [facility] Address [address] [place] [address] Phone Care Team Providers Care Surveying Teacher Name Role Phone Unknown, Unknown Primary Care Provider Edith Dewitt MD Primary Care Prov ider Fermín Redd MD Unavailable [phone] Marco Delvalle MD Unavailable [phone] Encounter Details Date Type Department Care Team (Late st Contact Info) Description 07/29/2018 Procedure Pass [facility] Periop [address] [place] [address] Social History Tobacco Use Types Packs/Day Years [...] on filedocumented in this encounter Care Teams Surveying Teacher Relationship Specialty Start Date End Date Unknown, Unknown, PCP - General 07/22/18 08/25/18 Edith Morgan MD [address] [place] [address] PCP - General Internal Medicine 08/26/18 Fermín Redd MD [address] [place] [address] [email or web address] 07/22/18 Marco Delvalle MD [address] [place] [id number] [email or web address] Clinical Psychology Professor Cardiology 08/09/18 documented as of this encounter Additional Source Comments The information contained in this document represents components of the legal health record. It is not the complete legal health record.[facility]
--- OUTSIDE RECORDS SUMMARY | 2025-07-13 13:46 | XMS_ITS | Encounter Summary ---
Author Organization [facility] Address [address] [place] [address] Care Team Providers Care Paediatric Thoracic Physician Name Role Phone Mello Grace MD Primary Care Provider [phone] Reason for Visit * Reason Onset Date Comments Cyst 06/28/2024 Encounter Details Date Type Department Care Team (Late st Contact Info) Description 06/28/2024 Nurse Triage Adult Medicine [address] [phone] Mello Grace MD [address] [place] [address] Social History Tobacco Use Types Packs/Day Years [...] to another state outside of [place], [place], [place], [place], [place], [place], [place]? no o If yes, did you quarantine [...] of accident/Injury: No If yes, gather 3rd alliance party insurance information Third Libertarian Information: not applicable PCP: Mello Grace MD Payor: / No coverage found. documented in this encounter Plan of Treatment Not on file documented as of this encounter Visit Diagnoses Not on filedocumented in this encounter Care Teams Paediatric Thoracic Physician Relationship Specialty Start Date End Date Mello Grace MD [address] [place] [address] PCP - General Internal Medicine 05/12/22 documented as of this encounter
--- OUTSIDE RECORDS SUMMARY | 2025-07-13 13:47 | XMS_ITS | Clinical Summary ---
Author Organization [facility] [address] [place] [address] Address [address] [place] [address] Phone Care Team Providers Care Timekeeper Name Role Phone Mello Grace MD Primary Care Provider [phone] Allergies No known active allergies Medications metoprolol succinate (TOPROL-XL) 50 mg 24 hr tablet Take 1 tablet (50 mg total) by mouth 1 (one) time each day. 90 tablet 1 5 Active lisinopriL (PRINIVIL,ZEST RIL) 10 mg tablet Take 1 tablet (10 mg total) by mouth 1 (one) time each day. 90 tablet 1 5 Active atorvastatin (LIPITOR) 20 mg tablet Take 1 tablet (20 mg total) by mouth at bedtime. 90 tablet 1 5 Active semaglutide (Wegovy) 1 mg/0.5 mL injection pen Inject 1 mg under the skin every 7 (seven) days. Active polyethylene glycol (MIRALAX) 17 gram packet Take 17 g by mouth 1 (one) time each day. 1530 g 1 5 Active senna-docusate (PERICOLACE) 8.6-50 mg per tablet Take 1 tablet by mouth 1 (one) time each day. 180 each 1 5 026 Active Additional Information Patient not taking.Reported on 06/15/2025 sildenafiL (VIAGRA) 50 mg tablet Take 1 tablet (50 mg total) by mouth 1 (one) time each day if needed for erectile dysfunction. 12 tablet 3 5 Active Additional Information Patient not taking.Reported on 06/15/2025 fluticasone propionate (FLONASE) 50 mcg/actuation nasal spray ADMINISTER 1 SPRAY INTO EACH NOSTRIL 1 TIME EACH DAY. 48 mL 1 5 Active polyethylene glycol (Golytely) 236-22.74-6.74 -5.86 gram solution Take 4L by mouth once for one dose. May substitue any PEG. Starting at 2PM the day before your procedure drink 1 8oz glasses at your own pace until you complete half of the gallon. Finish 2nd half of the gallon at 8PM. 4000 mL 5 Active bisacodyL (DULCOLAX) 5 mg EC tablet Take 2 tablets by mouth right before beginning bowel prep. See instructions provided by the office 2 tablet 5 Active cholecalcifero l (VITAMIN D-3) 25 mcg (1,000 unit) tablet TAKE 1 TABLET BY MOUTH EVERY DAY 90 tablet 5 Active aspirin 81 mg EC tablet TAKE 1 TABLET BY MOUTH EVERY DAY 90 tablet 5 Active polyethylene glycol (Golytely) 236-22.74-6.74 -5.86 gram solution Take 4L by mouth once for one dose. May substitue any PEG. Starting at 2PM the day before your procedure drink 1 8oz glasses at your own pace until you complete half of the gallon. Finish 2nd half of the gallon at 8PM. 4000 mL 5 Active bisacodyL (DULCOLAX) 5 mg EC tablet Take 2 tablets by mouth right before beginning bowel prep. See instructions provided by the office 2 tablet 5 Active carbamide peroxide (DEBROX) 6.5 % otic solution Administer 5-10 drops into each ear 2 (two) times a day. 15 mL 5 025 Discontin ued(Thera py completed ) Active Problems Problem Noted Date Diagnosed Date KARAN on CPAP 09/12/2022 S/P gastric sleeve procedure 10/02/2021 S/P CABG (coronary artery bypass graft) 11/03/19 19 Iron deficiency anemia 11/02/2018 Atrial fibrillation 08/26/2018 Overview (06/15/2024): Last Assessment & Plan: Patient complains of palpitations. He is on amiodarone and apixaban for paroxysmal atrial fibrillation the anticoagulation was stopped secondary to a GI bleed. So organ to repeat 30-day monitor to see if he is having episodes of breakthrough A. fib. Benign essential hypertension 08/12/2018 Overview (05/16/2024): Last Assessment & Plan: Blood pressure well controlled on the metoprolol. I would continue this. Chest pain 07/22/2018 Obesity (BMI 30-39.9) 07/13/2018 Leg pain 06/30/2018 Overview (05/16/2024): On tramadol from previous provider Hypertension 06/30/2018 Overview (05/16/2024): Last Assessment & Plan: Blood pressure under excellent control Hyperlipidemia 06/30/2018 Overview (05/16/2024): Last Assessment & Plan: Continue atorvastatin. I gave him a lab slip for repeat fasting lipids and LFTs in a few months. GERD (gastroesophageal reflux disease) 8 CAD (coronary artery disease) 06/30/2018 Overview (05/16/2024): Old AR; S/p multiple stents around 7664-8916 Last Assessment & Plan: Patient complains of chest discomfort because of that he is being referred for a stress echocardiogram. He also states that his palpitations have gotten worse with physical activity. Chronic pain disorder 04/23/2017 Overview (05/16/2024): SOAP-R total score 15 Vitamin D deficiency 03/05/2017 Chronic bilateral low back pain with bilateral s ciatica 03/05/2017 Overview (05/16/2024): Pain contract signed 03/05/17 Refused orthopedic/PT referral Claudication of calf muscles 01/13/2017 Myocardial infarction 08/17/2014 Immunizations Immunization Administration Dates Next Due Pneumococcal polysaccharide 23 valent (Pneumovax 23) 2yo and older 02/05/2009 Surgical History Surgery Date Site/Laterality Comments OTHER SURGICAL HISTORY 07/29/2018 PROCEDURE: IN CABG W/ARTERIAL GRAFT THREE ARTERIAL GRAFTS CARDIAC CATHETERIZATION 07/23/19 PROCEDURE: HISTORICAL CARDIAC CATH; COMMENT: multivessel CAD Medical History Medical History Date Comments Hypertension 06/30/2018 DX:Hypertension CAD (coronary artery disease) 06/30/2018 DX :CAD (coronary artery disease); COMMENT: Old AR; S/p multiple stents around 4269-8443 GERD (gastroesophageal reflux disease) 06/30/2018 DX:GERD (gastroesophageal reflux disease) Leg pain 06/30/2018 DX:Leg pain; COM MENT: On tramadol from previous provider Obesity (BMI 30-39.9) 07/13/2018 DX:Obesity (BMI 30-39.9) Tobacco abuse 07/13/2018 DX:Tobacco abuse Former smoker 07/13/2018 DX:Former smoker Alcohol use 01/13/2017 DX:Alcohol use Atrial fibrillation ([facility] V24, [facility] V28) 08/26/2018 DX:Atrial fibrillation ([facility]) Chronic bilateral low back p ain with bilateral sciatica 03/05/2017 DX:Chronic bilateral low maribel k pain with bilateral sciatica; COMMENT: Overview: Pain contract signed 03/05/17 Refused orthopedic/PT referral Chronic pain disorder 04/23/2017 DX:Chronic pain disorder; COMMENT: Overview: SOAP-R total score 15 Claudication of calf muscles ([facility] V24) 01/13/2017 DX:Claudication of calf musc les ([facility]) Hyperlipidemia 06/30/2018 DX:Hyperlipidemi a Vitamin D deficiency 03/05/2017 DX:Vitamin D deficiency Iron deficiency anemia 11/02/2018 DX:Iron d eficiency anemia S/P CABG (coronary artery by pass graft) 11/02/2018 DX:S/P CABG (coronary artery bypass graft) Family History Medical History Relation Name Comments Heart attack Father 41 Diabetes Mother cad Coronary artery disease Uncle mult iple aunts and uncles, maternal and paternal Relation Name Status Comments Father Mother Uncle Social History Tobacco Use Types Packs/Day Years Used Date Smoking Tobacco: Every Day Cigarettes 2 33.2 Started: 1985; Last attempted to quit: 07/29/2018 Smokeless Tobacco: Never Tobacco Cessation:Ready to Q uit: Not Asked; Counseling Given: Not Answered Alcohol Use Standard Drinks/Week Comments Yes 8 (1 standard drink = 0.6 oz pur e alcohol) Sex and Gender Information Value Date Recorded Sex Assigned at Not on file Legal Sex Male 12:44 AM EST Gender Identity Not on file Sexual Orientation Not on file Last Filed Vital Signs Vital Sign Reading Time Taken Comments Blood Pressure 116/86 02/03/2025 11:08 AM EDT Pulse 72 02/03/2025 11:08 AM EDT Temperature 35.9 C (96.7 F) 02/03/2025 11:08 AM EDT Respiratory Rate 16 02/03/2025 11:08 AM EDT Oxygen Saturation - - Inhaled Oxygen Concentration - - Weight 90.7 kg (200 lb) 06/15/2025 12:00 PM EST Height 175.3 cm (5' 9 ) 06/15/2025 12:00 PM EST Body Mass Index 29.53 06/15/2025 12:00 PM EST Plan of Treatment Health Maintenance Due Date Last Done Comments Colorectal Cancer Screening: Colonoscopy 1971 DTaP,Tdap,and Td Vaccines (1 - Tdap) 1990 Hepatitis B Vaccines (1 of 3 - 19+ 3-dose series) 1990 Pneumococcal Vaccine: 50+ Years (2 of 2 - PCV) 02/05/2010 02/05/2009 RSV Immunization Adult Patients (1 - Risk 50-74 years 1-dose series) 2021 Zoster Vaccines (1 of 2) 2021 HIV Screening 07/05/2022 Lung Cancer Screening (Low Dose CT) 07/05/2022 Social Influencers of Health Screening 07/05/2022 Depression Screening 07/27/2024 03/17/2024 Hypertension/CHF/CAD Annual BMP Blood Test 03/17/2025 03/17/2024, 03/17/2024 COVID-19 Vaccine (3 - 2024-2 6 season) 2025 12/10/2020, 11/19/2020 Influenza Vaccine (#1) 2025 Cholesterol Screening (Lipid Panel) 05/15/2028 05/15/2023, 05/15/2023 Hepatitis C Screening Completed 05/15/2023 , 05/15/2023 HIB Vaccines Aged Out No longer eligi ble based on patient's age to complete this topic HPV Vaccines Aged Out No longer eligi ble based on patient's age to complete this topic Hepatitis A Vaccines Aged Out No long er eligible based on patient's age to complete this topic IPV Vaccines Aged Out No longer eligi ble based on patient's age to complete this topic MMR Vaccines Aged Out No longer eligi ble based on patient's age to complete this topic Meningococcal ACWY Vaccine Aged Out N o longer eligible based on patient's age to complete this topic Meningococcal B Vaccine Aged Out No l onger eligible based on patient's age to complete this topic RSV Immunization Patients Under 20 months Aged Out No longer eligible b ased on patient's age to complete this topic Varicella Vaccines Aged Out No longer eligible based on patient's age to complete this topic Procedures Procedure Name Priority Date/Time Associated Diagnosis Comments DEPRESSION SCREENING Routine 03/17/2024 ANNUAL BMP BLOOD TEST Routine 03/17/2024 HEPATITIS C SCREENING Routine 05/15/2023 LIPID PANEL Routine 05/15/2023 from Last 3 Months or Most Recently Relevant to Health Maintenance Results * Annual BMP Blood Test (03/17/2024) Pathologist Replaced by [facility] Annual BMP Blood Test abstracted Result [facility] Provider HEALTH MAINTENANCE Final Result * Depression Screening (03/17/2024) Health system Depression Screening abstracted [facility] Provider HEALTH MAINTENANCE Final Result * Hepatitis C Screening (05/15/2023) Pathologist Replaced by [facility] Hepatitis C Screening abstracted Result [facility] Provider HEALTH MAINTENANCE Final Result * Lipid panel (05/15/2023) [facility] LDL/HDL Ratio 3 0 - 4 Triglycerides 109 0 - 150 mg/dL Cholesterol 153 0 - 200 mg/dL HDL 50 >=40 mg/dL LDL Cholesterol 82 0 - 100 mg/dL Blood Venous blood specimen / Unknown Result [facility] Provider LAB BLOOD ORDERABLES Maru l Result from Last 3 Months or Most Recently Relevant to Health Maintenance Insurance [employer] Care Teams Timekeeper Relationship Specialty Start Date End Date Mello Grace MD [address] [place] [address] PCP - General Internal Medicine 05/12/22
--- OUTSIDE RECORDS SUMMARY | 2025-07-13 13:47 | XMS_ITS | Clinical Summary ---
Author Organization [facility] Address [address] [facility] [address] [place] [address] Care Team Providers Care Construction Equipment Overhauler Name Role Phone Yvonne Fonseca MD Primary Care Provider [phone] Allergies No known active allergies Medications famotidine (Pepcid) 20 mg tablet TAKE 1 TABLET BY MOUTH ONCE DAILY 90 each 09/11/19 22 Active Additional Information Patient not taking.Reported on 06/26/2025 hyoscyamine (Levsin) 0.[address] 1 TABLET UNDER THE TONGUE EVERY 6 HOURS NEEDED FOR MUSCLE SPASMS 60 tablet 09/11/19 22 Active Additional Information Patient not taking.Reported on 06/26/2025 semaglutide, weight loss, (Wegovy) 2.4 mg/0.75 mL pen injectorIndica tions:Class 1 obesity with serious comorbidity and body mass index (BMI) of 30.0 to 30.9 in adult, unspecified obesity type Inject 2.4 mg under the skin every 7 (seven) days. 3 mL 5 06/26/20 25 026 Active semaglutide, weight loss, (Wegovy) 1.7 mg/0.75 mL pen injectorIndica tions:cardiova scular event risk reduction in obesity,weight loss management for obese patient (bmi >= 30),wt loss mgmt, pt with bmi 27-29 & wt-related comorbidity Inject 0.75 mL (1.7 mg) under the skin 1 (one) time per week. 3 mL 5 02/29/20 25 025 Discontinued semaglutide, weight loss, (Wegovy) 2.4 mg/0.75 mL pen injectorIndica tions:Class 1 obesity with serious comorbidity and body mass index (BMI) of 30.0 to 30.9 in adult, unspecified obesity type Inject 2.4 mg under the skin every 7 (seven) days. 3 mL 5 04/20/20 25 025 Discontinued(R eorder) Active Problems Problem Noted Date Diagnosed Date Hyperlipidemia 11/24/2024 Essential hypertension 11/24/2024 Bariatric surgery status 11/24/2024 Class 1 obesity with serious comorbidity and body mass index (BMI) of 30.0 to 30.9 in adult 11/24/2024 Encounters Date Type Department Care Team Description 06/28/2025 Telephone [facility] [address] [address] Carmella Hickman PA Wegovy 2.4mg 06/26/2025 10:00 AM EST Telemedicine [facility] [address] [address] Carmella Hickman PA Class 1 obesity with serious comorbidity and body mass index (BMI) of 30.0 to 30.9 in adult, unspecified obesity type (Primary Dx); Moderate mixed hyperlipidemia not requiring statin therapy; Essential hypertension; Bariatric surgery status 04/20/2025 2:30 PM EDT Office Visit [facility] [address] [address] Lillian Tapia PA Class 1 obesity with serious comorbidity and body mass index (BMI) of 30.0 to 30.9 in adult, unspecified obesity type (Primary Dx); Dietary counseling and surveillance; Exercise counseling; Status post bariatric surgery 04/20/2025 Travel from Last 3 Months Family History Relation Name Status Comments Father s/t cardi ac event at age 41 Social History Tobacco Use Types Packs/Day Years Used Date Smoking Tobacco: Never Assessed Sex and Gender Information Value Date Recorded Sex Assigned at Not on file Legal Sex Male 5:44 AM EST Gender Identity Not on file Sexual Orientation Not on file Last Filed Vital Signs Vital Sign Reading Time Taken Comments Blood Pressure 138/85 04/20/2025 2:13 PM EDT Pulse 70 04/20/2025 2:13 PM EDT Temperature - - Respiratory Rate 16 09/05/2021 9:00 AM EST Oxygen Saturation 98% 09/05/2021 9:00 AM EST Inhaled Oxygen Concentration - - Weight 93 kg (205 lb) 06/26/2025 10:02 AM EST 205, per patient Height 175.3 cm (5' 9 ) 06/26/2025 10:0 2 AM EST per patient Body Mass Index 30.27 06/26/2025 10:02 AM EST Plan of Treatment Upcoming Encounters Date Type Department Care Team (Late st Contact Info) Description 12/11/2025 2:00 PM EDT Office Visit [facility] [address] [place], [place] [phone] Carmella Hickman PA 91 [facility] [address] [place] [address] Health Maintenance Due Date Last Done Comments CT Colonography 1971 Colonoscopy 1971 Colorectal Cancer Screening 1971 FIT-DNA 1971 FIT 1971 FOBT 1971 HIV Screening 1971 Sigmoidoscopy 1971 MMR Vaccines (1 of 1 - Standard series) 1972 Hepatitis C Screening 1989 DTaP/Tdap/Td Vaccines (1 - Tdap) 1990 Hepatitis B Vaccines (1 of 3 - 19+ 3-dose series) 1990 Pneumococcal Vaccine: 50+ Years (2 of 2 - PCV) 02/05/2010 02/05/2009 High Risk LDL 07/22/2019 07/22/2018 Zoster Vaccines (1 of 2) 2021 Diabetes Screening 09/05/2022 09/05/2021, 07/22/2018 Lipid Panel 07/22/2023 07/22/2018 Depression Screening 07/27/2024 COVID-19 Vaccine (3 - 2024-2 6 season) 2025 12/10/2020, 11/19/2020 Influenza Vaccine (#1) 2025 Pneumococcal Vaccine: Pediatrics (0 to 5 Years) and At-Risk Patients (6 to 49 Years) Discontinued 02/05/2009 HIB Vaccines Aged Out No longer eligi ble based on patient's age to complete this topic HPV Vaccines (No Doses Required) Completed Hepatitis A Vaccines Aged Out No long er eligible based on patient's age to complete this topic IPV Vaccines Aged Out No longer eligi ble based on patient's age to complete this topic Meningococcal B Vaccine Aged Out No l onger eligible based on patient's age to complete this topic Meningococcal Vaccine Aged Out No leander michell eligible based on patient's age to complete this topic Rotavirus Vaccines Aged Out No longer eligible based on patient's age to complete this topic Insurance [facility] Care Teams Construction Equipment Overhauler Relationship Specialty Start Date End Date Yvonne Fonseca MD PCP - General Solvent Recoverer 12/20/21
--- OUTSIDE RECORDS SUMMARY | 2025-07-13 13:47 | XMS_ITS | Encounter Summary ---
Author Organization [facility] Address [address] [facility] [address] [place] [address] Care Team Providers Care Senior Planner Name Role Phone Yvonne Fonseca MD Primary Care Provider [phone] Reason for Visit * Reason Comments Med Change Request Encounter Details Date Type Department Care Team (Late st Contact Info) Description 01/27/2025 Refill [facility] [address] [place] [phone] Carmella Hickman PA [address] [address] Essential hypertension ; Hyperlipidemia, unspecified hyperlipidemia type ; Bariatric surgery status; Class 1 obesity with serious comorbidity and body mass index (BMI) of 30.0 to 30.9 in adult, unspecified obesity type; Coronary artery disease involving coronary bypass graft of [place] heart, unspecified whether angina present ; History [...] Description 12/11/2025 2:00 PM EDT Office Visit [facility] [address] [place] [phone] Carmella Hickman, PA [address] [place] [phone] documented as of this encounter Visit Diagnoses Diagnosis Essential hypertension Unspecified essential hypertension Hyperlipidemia, unspecified hyperlipidemia type Bariatric surgery status Class 1 obesity with serious comorbidity and body mass index (BMI) of 30.0 to 30.9 in adult, unspecified obesity type Coronary artery disease involving coronary bypass graft of [place] heart, unspecified whether angina present History of bariatric surgery Bariatric surgery status documented in this encounter Care Teams Senior Planner Relationship Specialty Start Date End Date Yvonne Fonseca MD PCP - General Hot Sealing Machine Operator 12/20/21 documented as of this encounter
--- OUTSIDE RECORDS SUMMARY | 2025-07-13 13:47 | XMS_ITS | Encounter Summary ---
Author Organization [facility] Address [address] [facility] [address] [place] [address] Phone Care Team Providers Care Seal Skinner Name Role Phone Unknown, Unknown Primary Care Provider Edith Dewitt MD Primary Care Prov ider Fermín Redd MD Unavailable [phone] Marco Delvalle MD Unavailable [phone] Encounter Details Date Type Department Care Team (Late st Contact Info) Description 07/23/2018 Procedure Pass [facility] Advocate [address] [place] [address] Social History Tobacco Use Types Packs/Day Years [...] on filedocumented in this encounter Care Teams Seal Skinner Relationship Specialty Start Date End Date Unknown, Unknown, PCP - General 07/22/18 08/25/18 Edith Morgan MD [address] [place] [id number] PCP - General Internal Medicine 08/26/18 Fermín Redd MD [address] [place] [phone] .Prized 07/22/18 Marco Delvalle MD [address] [place] [phone] [email or web address] Biochemical Development Engineer Cardiology 08/09/18 documented as of this encounter Additional Source Comments The information contained in this document represents components of the legal health record. It is not the complete legal health record.[facility]
== END 2025-07-13 12:25 | disposition home or self-care (01) ==
PROVIDERS: Visit Provider Physician Assistant Medical
DX: K08.89 Other specified disorders of teeth and supporting structures (principal); H61.23 Impacted cerumen, bilateral

== ENCOUNTER → 2025-07-13 10:46 | Outpatient (BNVA) | payer OTHER, SELFPAY | PROVIDERS: Visit Provider Physician Assistant Medical | DX: H61.23 Impacted cerumen, bilateral (principal); K08.89 Other specified disorders of teeth and supporting structures | CPT/HCPCS: 69209; 99212 ==